=== PATIENT | female | born 1995 | race Hispanic/Latino ===

== ENCOUNTER 2022-06-04 21:15 | Emergency (ER) | payer BC, OTHER ==
[~2022-06-04] VITALS: Ht 162.6 cm; Wt 96.6 kg
[2022-06-05] MEDS ORDERED: DiphenhydrAMINE HCL 50 MG/ML VIAL IV ONE (00:30)
[2022-06-05] MEDS ORDERED: ACETAMINOPHEN 500 MG TABLET PO ONE (00:30)
[2022-06-05] MEDS ORDERED: 0.9%NACL 1000ML 1,000 ML IV ONE (00:30)
[2022-06-05] MEDS ORDERED: METOCLOPRAMIDE 10 MG/2 ML VIAL IVP ONE (00:30)
[2022-06-05 00:41] LABS: APPEARANCE,URINE CLEAR (CLEAR); BILIRUBIN,URINE NEGATIVE (NEGATIVE); COLOR,URINE LIGHT-YELLOW (YELLOW); GLUCOSE, URINE (UA) NEGATIVE (NEGATIVE); KETONES,URINE NEGATIVE (NEGATIVE); LEUKOCYTE ESTERASE ,URINE NEGATIVE Leu/uL (NEGATIVE); NITRATE,URINE NEGATIVE (NEGATIVE); OCCULT BLOOD,URINE NEGATIVE (NEGATIVE); PH,URINE 5.5 (5.0-8.0); PROTEIN,URINE NEGATIVE (NEGATIVE); UROBILINOGEN,URINE 0.2 mg/dL (0.2-1.0)
[2022-06-05 00:43] LABS: HCG,QUALITATIVE URINE NEGATIVE (NEGATIVE)
[2022-06-05] MEDS ORDERED: IBUP-2070 PO (01:11)
[2022-06-05] MEDS ORDERED: CYCL5TAB PO (01:11)
[2022-06-05 03:02] VITALS: BP 118/65
== END 2022-06-05 03:00 | disposition home or self-care (01) ==
LOC: EDH 21:15
DX: G43.909 Migraine, unspecified, not intractable, without status migrainosus (principal); F32.A Depression, unspecified; Z88.1 Allergy status to other antibiotic agents
CPT/HCPCS: 99284; 81003; 81025; 96374; 70450; 96361; 96375; J1200; J7030; J2765